=== PATIENT | male | born 1995 | race Hispanic/Latino ===

== ENCOUNTER 2021-03-09 22:08 | Emergency (ER) | payer OTHER ==
[~2021-03-09] VITALS: Ht 167.6 cm; Wt 88.5 kg
[2021-03-09 22:31] VITALS: BP 130/80
[2021-03-09] MEDS ORDERED: HYDROXYZINE 25 MG TABLET PO ONE (23:30)
[2021-03-10] MEDS ORDERED: HYDROXYZINE 25 MG TABLET ONE (00:33)
[2021-03-10 01:07] LABS: CREATININE 0.7 mg/dL (0.5-1.5)
[2021-03-10 01:09] LABS: INR 1.04 (0.85-1.15); PROTHROMBIN TIME 11.3 SEC (9.6-11.6)
[2021-03-10 01:11] LABS: ALBUMIN 3.6 g/dL (3.5-5.0); BILIRUBIN,TOTAL 0.6 mg/dL (0.2-1.0); TOTAL PROTEIN, SERUM 7.7 g/dL (6.0-8.3)
[2021-03-10 01:20] LABS: B-TYPE NATRIURETIC PEPTIDE 18 pg/mL (0-100)
[2021-03-10 01:21] LABS: BASOPHILS % (AUTO) 1.1 % (0.0-5.0); EOSINOPHILS % (AUTO) 13.4 % (0.0-8.0); HEMATOCRIT 42.7 % (42-54); LYMPHOCYTES % (AUTO) 26.8 % (21.0-51.0); MEAN CORPUSCULAR HEMOGLOBIN 30.7 pg (27.0-33.0); MEAN CORPUSCULAR HGB CONC 34.4 g/dL (32.0-36.0); MEAN CORPUSCULAR VOLUME 89.1 fL (79-99); MONOCYTES % (AUTO) 8.9 % (3.0-13.0); NEUTROPHILS % (AUTO) 49.7 % (40.0-77.0); PLATELET COUNT (AUTO) 490 K/uL (130-400); RED BLOOD CELL COUNT(AUTO) 4.79 MIL/uL (4.50-6.20); RED CELL DISTRIBUTION WIDTH 14.1 % (11.0-15.5)
[2021-03-10] MEDS ORDERED: 0.9% NACL 500ML IV.SOLN 500 ML IV ONE (01:59)
[2021-03-10] MEDS ORDERED: IOHEXOL-350 75 ML VIAL IV ONE (02:12)
[2021-03-10 04:02] VITALS: BP 126/78
== END 2021-03-10 04:04 | disposition home or self-care (01) ==
LOC: EDH 22:08
DX: R06.00 Dyspnea, unspecified (principal); R50.9 Fever, unspecified; R05 Cough; Z77.098 Contact with and (suspected) exposure to other hazardous, chiefly nonmedicinal, chemicals; Z86.16 Personal history of COVID-19
CPT/HCPCS: 36415; 71045; 71275; 80053; 82550; 83880; 84484; 85025; 85378; 85610; 93005; 96360; 99285; J7040; Q9967